=== PATIENT | male | born 1995 ===

== ENCOUNTER 2021-10-09 19:24 | Emergency (ER) | payer SELFPAY ==
[~2021-10-09] VITALS: Ht 167.6 cm; Wt 81.8 kg
[2021-10-10] MEDS ORDERED: HYDR-3965 PO (00:14)
[2021-10-10 00:34] VITALS: BP 128/80
== END 2021-10-10 00:35 | disposition home or self-care (01) ==
LOC: ER 19:26
DX: S61.412A Laceration without foreign body of left hand, initial encounter (principal); W19.XXXA Unspecified fall, initial encounter; Y93.89 Activity, other specified; Y92.89 Other specified places as the place of occurrence of the external cause; Y99.8 Other external cause status
CPT/HCPCS: 12001; 73130; 99283; A6449